=== PATIENT | male | born 2000 | race African-American/Black ===

== ENCOUNTER 2022-12-08 17:11 | Emergency (ER) | payer OTHER, MEDICAID, SELFPAY ==
[2022-12-08 17:12] VITALS: BP 150/94; PULSE 79; RESP 16; TEMP 36.8; O2SAT 97; BMI 28.7
--- NOTE | 2022-12-08 17:24 | CT_ITS ---
INDICATION: trauma- FOOTBALL INJURY EXAMINATION: CT CHEST WITHOUT CONTRAST - CT Chest W/O Contrast Injection TECHNIQUE: Helically acquired images were obtained of the chest. A radiation dose optimization technique was used for this scan. IV Contrast dosage and agent: None. COMPARISON: None. FINDINGS: LUNGS, PLEURA AND LARGE AIRWAYS: No masses, consolidation, or edema. No pleural effusion or thickening. No pneumothorax. THYROID: No thyroid lesions. HEART AND PERICARDIUM: Heart size is normal. No pericardial effusion. CORONARY ARTERIES: Coronary artery calcification is seen. VESSELS: Thoracic aorta is not dilated. MEDIASTINUM AND SARAH: No mediastinal or hilar adenopathy. Esophagus is unremarkable. No hiatal hernia. UPPER ABDOMEN: No acute pathology. BONES: No suspicious lytic or blastic abnormality. CT/Chest without Contrast IMPRESSION: Nonacute rib fractures CT chest without contrast. Electronically Signed: Dano Pablo MD ([place]) at 18:09 EDT ,
--- NOTE | 2022-12-08 17:24 | CT_ITS ---
EXAM: CT CERVICAL SPINE WITHOUT INTRAVENOUS CONTRAST CLINICAL INDICATION: trauma-FOOTBALL INJURY TECHNIQUE: Helically acquired images were obtained of the cervical spine without intravenous contrast. 2D reformatted images were reviewed. This CT exam was performed using one or more of the following dose reduction techniques: automated exposure control, adjustment of the mA and/or kV according to patient size, and/or use of iterative reconstruction technique. RADIATION DOSE: CTDIvol = 17.68 mGy, DLP = 396.83 mGy-cm COMPARISON: No relevant prior studies available. FINDINGS: VERTEBRAE: Unremarkable. No fracture. No traumatic subluxation. No discrete lytic or blastic abnormality. Normal alignment. Normal craniocervical junction and cervicothoracic junction. DISCS/SPINAL CANAL/NEURAL FORAMINA: Unremarkable. Disc heights are preserved. No critical stenosis. SOFT TISSUES: Unremarkable. No prevertebral soft tissue swelling. LYMPH NODES: Unremarkable. No cervical adenopathy. LUNG APICES: Unremarkable as visualized. Clear. CT/Spine Cervical without Contras IMPRESSION: No evidence of acute cervical spinal fracture or spondylolisthesis. Electronically Signed: Dano Pablo MD ([place]) at 18:11 EDT Reading Location ID and State: [facility] / [place] , Service support ,
--- NOTE | 2022-12-08 17:26 | EX.ED.GENINJ ---
HPI History of Present Illness Chief Complaint: Other, Pain/Inj Narrative Narrative: Patient sustained a hit and football, apparently hyperextended his neck. He had a some mild pain initially continued to play the rest of the game and finished the game afterwards he developed quite a bit of pain mostly paraspinal neck. It does extend into his thoracic region. No head injury, no loss of consciousness, no confusion or any neurological symptoms she was wearing a helmet. PFSH PFSH Allergy/AdvReac Type Severity Reaction Status Date / Time No Known Allergies Allergy Verified 12/08/22 17:18 Social History Smoking Status: Never smoker ROS ROS ED ROS Narrative Social: Noncontributory Medications: Reviewed Past medical history: Reviewed Review of systems General: Patient has no head injury or loss of consciousness HEENT: No facial injury Neck: Pain as in HPI Cardiovascular: Patient denies any chest pain or palpitations Chest wall: No chest wall contusions Respiratory: There is no shortness of breath GI: There is no nausea vomiting diarrhea or abdominal pain, no abdominal wall contusions Skin: No lacerations or abrasions Neurological: Patient has no memory loss, confusion, or any focal weakness Psychiatric: No recent behavioral changes Back: Some upper back pain Musculoskeletal: No extremity injury All other systems are reviewed and normal EXAM Physical Exam Narrative Exam Narrative: Physical exam Vitals reviewed General: Patient appears uncomfortable HEENT: No facial injury Head: No head injury Eyes: Extraocular movements intact Neck: Bilateral paraspinal neck pain. Some slight C-spine tenderness. Heart: Regular rate normal pulses Chest wall: No chest wall pain Lungs clear lungs bilaterally with normal inspiration and expiration without tachypnea GI: Abdomen is soft and nontender there is no mass no guarding no abdominal wall contusion : Stable pelvis Musculoskeletal: Moves all extremities without any signs of trauma Back: Bilateral paraspinal tenderness in the upper thoracic as well as some pain over the trapezius region bilaterally. Skin: No abrasions or laceration Neurological: Patient is alert and oriented with no focal deficits Const Vital Signs: 12/08/22 17:12 12/08/22 17:20 Temperature 98.2 F Temperature Source Temporal Pulse Rate 79 Respiratory Rate 16 Respiratory Effort Normal Non-Labored Respiratory Pattern Normal Blood Pressure 150/94 H Blood Pressure Mean 112 Pulse Ox 97 Oxygen Delivery Method Room Air MDM MDM MDM Narrative Medical decision making narrative: CT of the C-spine and chest is unremarkable. Patient significantly improved. I will reassure him and I will discharge him in stable condition. Radiography Diagnostic Testing: Clinical Impression(s) from Imaging Studies Cervical Spine CT 12/08/22 17:24 IMPRESSION: No evidence of acute cervical spinal fracture or spondylolisthesis. Electronically Signed: Dano Pablo MD ([place]) at 18:11 EDT , Chest CT 12/08/22 17:24 IMPRESSION: Nonacute rib fractures CT chest without contrast. Electronically Signed: Dano Pablo MD ([place]) at 18:09 EDT , Discharge Plan Triage Chief Complaint: Other, Pain/Inj ED Provider: Kevin Thakkar Dx/Rx/DC Orders Clinical Impression: Neck soft tissue injury, Chest wall contusion Primary Care Provider: Elgin Parisi,Out of Referrals: Elgin Parisi,Out of [Primary Care Provider] - 3-5 Days Disposition Disposition: Home, Self Care
[2022-12-08] MEDS: Morphine 4 MG/ML Syringe IV (17:39)
[2022-12-08] MEDS: Ondansetron 4 MG/2 ML Vial IV (17:39)
[2022-12-08] MEDS: Ketorolac 15 MG/ML Vial IV (17:39)
[2022-12-08] MEDS: Oxycodone/Apap 5/325 Tablet PO (18:45)
[2022-12-08] MEDS: cycloBENZAPRine HCl 10 MG Tablet PO (18:45)
== END 2022-12-08 18:47 | disposition home or self-care (01) ==
LOC: ED 18:39
PROVIDERS: Emergency Provider Emergency Medicine; Visit Provider Emergency Medicine
DX: S19.9XXA Unspecified injury of neck, initial encounter (principal); S20.20XA Contusion of thorax, unspecified, initial encounter; Y93.61 Activity, american tackle football; W21.01XA Struck by football, initial encounter; Y92.321 Football field as the place of occurrence of the external cause
CPT/HCPCS: 71250; 72125; 96374; 96375; 99285; J2405